=== PATIENT | female | born 1970 | race Caucasian/White ===

== ENCOUNTER 2017-04-26 14:00 | Emergency (ER) | payer BC ==
[~2017-04-26] VITALS: Ht 170.2 cm; Wt 93.0 kg
--- NOTE | ~2017-04-26 | CR181 ---
[facility] A Service of [facility] & [facility] RADIOLOGY TEXT RESULTS PATIENT: HARJEET MORRISON LOCATION: [facility] : 68 UNIT #: [id number] AGE: [address]: Brent Patrick DO SEX: F ORDER DR: [id number] [facility] [address] [place], [place] [address] [id number] MR#: [id number] Acc #: [id number] NAME: HARJEET MORRISON : 1970 SEX: F STUDY DATE/TIME: 04/26/2017 17:01 UNIT: [facility] ROOM: STUDY DESCRIPTION: CR Lumbar Spine 2 or 3 Views Attending Physician: Brent Patrick D.O. Ordering Physician: Brent Patrick D.O. Primary Care Physician: Al Moore M.D. MEDICAL IMAGING REPORT This report is preliminary unless electronic signature is present EXAM Lumbar spine 3 views HISTORY Back pain onset today at 1 o'clock helping lift a Hoveround. FINDINGS AP, lateral and cone lateral views lumbar spine demonstrates multilevel degenerative disc disease most pronounced L4-5 and to a lesser extent L3-4. No fracture. No spondylolysis or spondylolisthesis. Soft tissues unremarkable except for insufflation port for apparent Lap-Band surgery. SI joints appear normal. IMPRESSION Lower lumbar spine degenerative disc changes. No acute findings. Dictated by... Ezio Davenport M.D. THIS IS AN ELECTRONICALLY VERIFIED REPORT Ezio Davenport M.D. at 04/27/2017 7:15 AM CAROLYN/enrico TD: 04/27/2017 06:11 JOB #: [id number] MEDICAL IMAGING REPORT Page 1 of 1 COPY
[~2017-04-26 14:00] MED LIST: EFFEXOR XR PO; FLEXERIL PO; LODINE PO; LORTAB 7.5-5001 TAB PO; OXYCONTIN PO; PERCOCET5/325 PO; PHENERGAN25 MG PO; VICODIN 5/500 T1 TAB PO
[2017-04-26 17:44] LABS: URINE SOURCE CLEAN CATCH
[2017-04-26 17:56] LABS: URINE APPEARANCE CLEAR; URINE BLOOD NEG (NEG); URINE COLOR DK YELLOW; URINE GLUCOSE NEG (NEG); URINE KETONE TRACE (NEG); URINE LEUKOCYTE ESTERASE NEG (NEG); URINE NITRATE NEG (NEG); URINE PROTEIN NEG (NEG); URINE SPECIFIC GRAVITY 1.013 (1.003-1.035)
[2017-04-26 18:06] LABS: URINE BILIRUBIN NEG (NEG)
[2017-04-26 18:28] LABS: CULTURE INDICATED? NO
== END 2017-04-26 18:27 | disposition home or self-care (01) ==
LOC: CED 14:00
PROVIDERS: Emergency Medicine
DX: S39.012A Strain of muscle, fascia and tendon of lower back, initial encounter (principal); F32.9 Major depressive disorder, single episode, unspecified; Z90.710 Acquired absence of both cervix and uterus; X50.9XXA Other and unspecified overexertion or strenuous movements or postures, initial encounter; Y92.009 Unspecified place in unspecified non-institutional (private) residence as the place of occurrence of the external cause
CPT/HCPCS: 72100; 81003; 84703; 96372; 99283; J1885